=== PATIENT | male | born 1990 | race African-American/Black ===

== ENCOUNTER 2020-08-01 14:28 | Emergency (ER) | payer OTHER ==
[~2020-08-01] VITALS: Ht 177.8 cm; Wt 100.0 kg
[2020-08-01] MEDS ORDERED: ONDANSETRON PF 4 MG/2 ML VIAL. IVP ONE (14:45)
[2020-08-01] MEDS ORDERED: IV NORMAL SALINE 1,000ML 1,000 ML IV ONE ×2 (14:45→15:45)
[2020-08-01 15:12] LABS: BASO % 1 % (0-3); EOS # 0.1 x10^3/uL (0.0-0.7); EOS % 3 % (0-3); HEMATOCRIT 44.3 % (39.0-53.0); HEMOGLOBIN 14.1 g/dL (13.0-17.5); LYMPH # 1.1 x10^3/uL (1.0-4.8); LYMPH % 28 % (24-48); MEAN CORPUSCULAR HEMOGLOBIN 28 pg (25-35); MEAN CORPUSCULAR HGB CONC 32 g/dL (31-37); MEAN CORPUSCULAR VOLUME 89 fL (79-100); MONO # 0.5 x10^3/uL (0.0-1.1); MONO % 12 % (0-9); NEUT # 2.1 x10^3uL (1.8-7.7); NEUT % 56 % (31-73); PLATELET COUNT 215 x10^3/uL (140-400); RED BLOOD COUNT 5.01 x10^6/uL (4.30-5.70); RED CELL DISTRIBUTION WIDTH 14.7 % (11.5-14.5); WHITE BLOOD COUNT 3.8 x10^3/uL (4.0-11.0)
--- NOTE | 2020-08-01 15:14 | RAD ---
CT HEAD AND C-SPINE WO Date: 08/01/2020 2:43 PM Clinical Indication: seizure, confusion / Spl. Instructions: / History: Comparison: None. Technique: 5 mm axial tomographic images were obtained of the head without contrast. These were view ed on brain and bone windows. CT imaging of the cervical spine was performed without contrast. Coron al and sagittal reformatted images were performed. One or more of the following dose reduction techni ques were utilized: Automated exposure control (AEC), Adjustment of mA and/or kV according to patient size, Use of iterative reconstruction technique such as ASiR, CT scan done according to ALARA and im age gently/image wisely HEAD FINDINGS: The brain parenchyma is normal in attenuation. No intra- or extra-axial mass or fluid collection. No acute hemorrhage. The ventricles are normal in size, shape, and morphology. The summers-white matter simon ction is normal. The basilar cisterns are patent. The visualized paranasal sinuses are normal. The visualized portions of the orbits and globes are no rmal. The mastoid air cells are clear. No aggressive osseous lesion or fracture. CERVICAL SPINE FINDINGS: The cervical spine is normally aligned. No acute fracture. No aggressive lytic or blastic osseous les ion. The intervertebral disc heights are maintained. No high-grade spinal canal stenosis or neural foramin al narrowing. The thyroid gland is normal. No cervical lymphadenopathy. The visualized aerodigestive tract is unrem arkable. The visualized lung apices are clear. IMPRESSION: 1. No acute intracranial process. 2. No acute osseous abnormality of the cervical spine. Electronically signed by: Farhad Mccord MD (08/01/2020 3:11 PM) [facility]
[2020-08-01 15:17] LABS: CALCIUM 8.5 mg/dL (8.5-10.1); CREATININE 1.2 mg/dL (0.7-1.3); GFR 72.1; POTASSIUM 4.2 mmol/L (3.5-5.1)
[2020-08-01 15:30] LABS: ALBUMIN 3.7 g/dL (3.4-5.0); MAGNESIUM 1.8 mg/dL (1.8-2.4); TOTAL BILIRUBIN 0.3 mg/dL (0.2-1.0); TOTAL PROTEIN 7.4 g/dL (6.4-8.2)
--- NOTE | 2020-08-01 15:44 | PHYS DOC ---
Past History Past Medical History: Diabetes Past Surgical History: No Surgical History Smoking: Non-smoker Alcohol Use: None Drug Use: None General Adult EDM: Chief Complaint: SEIZURE HPI: HPI: Patient is a 30 year old male with Type 1 Diabetes who presents via EMS after a reported seizure. Pt states he remembers laying down in bed at his [facility] house and then waking up at the hospital. EMS states he was found down on the side of a hill, BG was 300. Pt says he did not take his insulin this morning because he has not eaten anything today. He has vomit present on his shirt but is currently resting comfortably in bed. He reports diffuse body soreness but no headache, chest pain, or SOB. His only localized pain is in his left elbow. He has no history of siezures, denies any recent trauma, alcohol, or drug use. He does not have any other complaints at this time. Review of Systems: Review of Systems: Constitutional: Denies fever or chills Eyes: Denies redness or eye pain HENT: Denies nasal congestion or sore throat Respiratory: Denies cough or shortness of breath Cardiovascular: Denies chest pain or palpitations GI: Denies abdominal pain, nausea. Vomit present on shirt : Denies dysuria or hematuria Musculoskeletal: Denies back pain or joint pain, reports diffuse muscle soreness /aches. Reports L elbow pain. Integument: Denies rash or skin lesions Neurologic: Denies headache, focal weakness or sensory changes Complete systems were reviewed and found to be within normal limits, except as documented in this note. Current Medications: Current Meds: Current Medications Medications (Trade) Dose Ordered Sig/Maria Elena Start Time Stop Time Status Last Admin Dose Admin Ondansetron HCl (Zofran) 4 mg 1X ONCE 08/01/20 14:45 08/01/20 14:54 DC 08/01/20 15:01 4 MG Sodium Chloride 1,000 ml @ 1,000 mls/hr 1X ONCE 08/01/20 14:45 08/01/20 15:44 08/01/20 15:01 1,000 MLS/HR Allergies: Allergies: Allergies Coded Allergies Type Severity Reaction Last Updated Verified No Known Drug Allergies 08/01/20 No Physical Exam: PE: Constitutional: Well developed, well nourished, no acute distress, non-toxic appearance HENT: Normocephalic, atraumatic Eyes: PERRL, EOMI, conjunctiva normal, no discharge Neck: Normal range of motion, no tenderness, supple Lungs & Thorax: No respiratory distress, equal chest rise and fall Abdomen: Soft, no tenderness Skin: Warm, dry, no erythema, no rash Back: No midline tenderness, no CVA tenderness Extremities: No tenderness, ROM intact, no edema. Reports L elbow pain Neurologic: Alert and oriented X 3, normal motor function, normal sensory function, no focal deficits noted Psychologic: Affect normal, judgment normal, lethargic/fatigued Current Patient Data: Labs: Laboratory Tests Test 08/01/20 14:44 08/01/20 14:47 Glucose (Fingerstick) 278 mg/dL (70-99) H Sodium Level 135 mmol/L (136-145) L Potassium Level 4.2 mmol/L (3.5-5.1) Chloride Level 99 mmol/L (98-107) Carbon Dioxide Level 26 mmol/L (21-32) Anion Gap 10 (6-14) Blood Urea Nitrogen 21 mg/dL (8-26) Creatinine 1.2 mg/dL (0.7-1.3) Estimated GFR (Cockcroft-Gault) 72.1 BUN/Creatinine Ratio 18 (6-20) Glucose Level 298 mg/dL (70-99) H Lactic Acid Level 2.3 mmol/L (0.4-2.0) H Calcium Level 8.5 mg/dL (8.5-10.1) Magnesium Level 1.8 mg/dL (1.8-2.4) Total Bilirubin 0.3 mg/dL (0.2-1.0) Aspartate Amino Transferase (AST) 24 U/L (15-37) Alanine Aminotransferase (ALT) 49 U/L (16-63) Alkaline Phosphatase 110 U/L (46-116) Creatine Kinase 184 U/L (39-308) Total Protein 7.4 g/dL (6.4-8.2) Albumin 3.7 g/dL (3.4-5.0) Albumin/Globulin Ratio 1.0 (1.0-1.7) Ethyl Alcohol Level < 10 mg/dL (0-10) Vital Signs: Vital Signs Date Time Temp Pulse Resp B/P (MAP) Pulse Ox O2 Delivery O2 Flow Rate FiO2 08/01/20 14:40 97.6 84 16 141/74 (96) 96 Room Air EKG: EKG: [] Radiology/Procedures: Radiology/Procedures: PROCEDURE: CT HEAD AND CERVICAL SPINE WO CT HEAD AND C-SPINE WO Date: 08/01/2020 2:43 PM Clinical Indication: seizure, confusion / Spl. Instructions: / History: Comparison: None. Technique: 5 mm axial tomographic images were obtained of the head without contrast. These were viewed on brain and bone windows. CT imaging of the cervical spine was performed without contrast. Coronal and sagittal reformatted images were performed. One or more of the following dose reduction techniques were utilized: Automated exposure control (AEC), Adjustment of mA and/or kV according to patient size, Use of iterative reconstruction technique such as ASiR, CT scan done according to ALARA and image gently/image wisely HEAD FINDINGS: The brain parenchyma is normal in attenuation. No intra- or extra-axial mass or fluid collection. No acute hemorrhage. The ventricles are normal in size, shape, and morphology. The summers-white matter junction is normal. The basilar cisterns are patent. The visualized paranasal sinuses are normal. The visualized portions of the orbits and globes are normal. The mastoid air cells are clear. No aggressive osseous lesion or fracture. CERVICAL SPINE FINDINGS: The cervical spine is normally aligned. No acute fracture. No aggressive lytic or blastic osseous lesion. The intervertebral disc heights are maintained. No high-grade spinal canal stenosis or neural foraminal narrowing. The thyroid gland is normal. No cervical lymphadenopathy. The visualized aerodigestive tract is unremarkable. The visualized lung apices are clear. IMPRESSION: 1. No acute intracranial process. 2. No acute osseous abnormality of the cervical spine. Electronically signed by: Farhad Mccord MD (08/01/2020 3:11 PM) [facility] PROCEDURE: ELBOW LEFT 3V XR ELBOW COMPLETE_LEFT 3+VIEWS 08/01/2020 3:40 PM INDICATION: Pain COMPARISON: None available. TECHNIQUE: 3 views of the left elbow are provided. FINDINGS/ IMPRESSION: No definite elbow joint effusion. There is no acute fracture or dislocation. Joint spaces are maintained. Bone mineralization is within normal limits. Regional soft tissues are within normal limits. There is no soft tissue gas or osseous erosion. No radiopaque foreign body. Electronically signed by: Marion Durbin MD (08/01/2020 3:50 PM) [facility] Course & Med Decision Making: Course & Med Decision Making Pertinent Labs and Imaging studies reviewed. (See chart for details) Aydin Aguilera is a 30 yo male who presents today via EMS for suspected seizure. His labs showed an increased lactic acid (2.3), BG of 278-298. Imaging showed no acute intracranial process, no c spine abnormality, and no fracture in the left elbow. Pt was treated with fluids and zofran, and instructed to follow up with an outpatient neurologist. Return precautions were discussed and all questions were answered. Patient stable for discharge with outpatient follow-up with PCP. Discussed findings and plan with patient, who acknowledges understanding and agreement. Dragon Disclaimer: Edith Disclaimer: This electronic medical record was generated, in whole or in part, using a voice recognition dictation system. Departure Departure: Impression: Primary Impression: Seizure-like activity Additional Impression: Nausea & vomiting Qualified Codes: R11.2 - Nausea with vomiting, unspecified Disposition: 01 DC HOME SELF CARE/HOMELESS Condition: STABLE Referrals: PCP,UNKNOWN (PCP) MARINO VELEZ MD Patient Instructions: Nausea and Vomiting, [id number], Seizure, Adult, [id number] Additional Instructions: Increase fluid hydration. In order to operate a motor vehicle you must be seizure-free for 6 months or cleared by a neurologist. Scripts Ondansetron (ONDANSETRON ODT) 4 Mg Tab.rapdis 1 TAB PO PRN Q6-8HRS PRN for NAUSEA, #16 TAB Prov: KARMEN LANDEROS DO 08/01/20 KARMEN LANDEROS DO Aug 01, 2020 15:44
--- NOTE | 2020-08-01 15:53 | RAD ---
XR ELBOW COMPLETE_LEFT 3+VIEWS 08/01/2020 3:40 PM INDICATION: Pain COMPARISON: None available. TECHNIQUE: 3 views of the left elbow are provided. FINDINGS/ IMPRESSION: No definite elbow joint effusion. There is no acute fracture or dislocation. Joint spaces are maintai juan carlos. Bone mineralization is within normal limits. Regional soft tissues are within normal limits. The re is no soft tissue gas or osseous erosion. No radiopaque foreign body. Electronically signed by: Marion Durbin MD (08/01/2020 3:50 PM) [facility]
[2020-08-01 15:59] LABS: AMPHETAMINE/METHAMPHETAMINE NEG (NEG); BARBITURATES NEG (NEG); BENZODIAZEPINES NEG (NEG); CANNABINOIDS NEG (NEG); COCAINE NEG (NEG); METHADONE NEG (NEG); OPIATES NEG (NEG); PHENCYCLIDINE NEG (NEG)
[2020-08-01 16:04] VITALS: BP 124/72
[2020-08-01 16:18] LABS: BILIRUBIN,URINE NEG (NEG); CLARITY,URINE CLEAR; COLOR,URINE YELLOW; GLUCOSE,URINE >=1000 mg/dL (NEG)
[2020-08-01 16:19] LABS: BACTERIA,URINE 0 /HPF (0-FEW); NITRITE,URINE NEG (NEG); RBC,URINE 0 /HPF (0-2); SQUAMOUS EPITHELIAL CELL,UR OCC /LPF; UROBILINOGEN,URINE 0.2 mg/dL (0.2 mg/dL); WBC,URINE OCC /HPF (0-4)
[2020-08-01] MEDS ORDERED: ONDA4TAB12 PO (16:39)
== END 2020-08-01 16:53 | disposition home or self-care (01) ==
LOC: ER 14:28
DX: R56.9 Unspecified convulsions (principal); R11.12 Projectile vomiting; M25.522 Pain in left elbow; E10.8 Type 1 diabetes mellitus with unspecified complications
CPT/HCPCS: 36415; 70450; 72125; 73080; 80053; 80307; 81001; 82010; 82550; 82947; 83605; 83735; 85025; 96361; 96374; 99285; G0480; J2405; J7030

== ENCOUNTER 2020-12-25 06:13 | Emergency (ER) | payer OTHER ==
[~2020-12-25] VITALS: Ht 177.8 cm; Wt 100.0 kg
[~2020-12-25 06:13] MED LIST: ONDA4TAB12 PO
[2020-12-25 07:41] LABS: BASO # 0.1 x10^3/uL (0.0-0.2); BASO % 1 % (0-3); EOS # 0.7 x10^3/uL (0.0-0.7); EOS % 13 % (0-3); HEMOGLOBIN 14.2 g/dL (13.0-17.5); LYMPH # 2.4 x10^3/uL (1.0-4.8); LYMPH % 44 % (24-48); MEAN CORPUSCULAR HEMOGLOBIN 29 pg (25-35); MEAN CORPUSCULAR HGB CONC 33 g/dL (31-37); MEAN CORPUSCULAR VOLUME 89 fL (79-100); MONO # 0.5 x10^3/uL (0.0-1.1); MONO % 9 % (0-9); NEUT # 1.8 x10^3uL (1.8-7.7); NEUT % 32 % (31-73); PLATELET COUNT 241 x10^3/uL (140-400); RED BLOOD COUNT 4.84 x10^6/uL (4.30-5.70); RED CELL DISTRIBUTION WIDTH 14.6 % (11.5-14.5); WHITE BLOOD COUNT 5.5 x10^3/uL (4.0-11.0)
--- NOTE | 2020-12-25 07:56 | PHYS DOC ---
Past History Past Medical History: Diabetes, Other Additional Past Medical Histor: type 1 Past Surgical History: No Surgical History Smoking: Non-smoker Alcohol Use: None Drug Use: None Social History Narrative: k2 Adult General Chief Complaint Chief Complaint: SYNCOPE HPI HPI Patient is a 30-year-old male with past medical history of type 1 diabetes who presents to the emergency room after having a syncopal episode. Patient states that his glucose was elevated this morning when he woke up in the 400s. He gave himself 20 units of insulin and then went into the bathroom. He states the next thing he knew he woke up with people surrounding him. He states he feels back to normal now. Glucose was in the 200s when EMS picked him up. He states his glucoses have been all over the place recently. He did have a seizure in July but has not had any seizures since then. He has not followed up with a neurologist since that time. No one witnessed a syncopal event today. He denies any headache, dizziness, chest pain, shortness of breath, abdominal pain, nausea, vomiting. Review of Systems Review of Systems Complete ROS is negative unless otherwise documented in [facility] Allergies Allergies Allergies Coded Allergies Type Severity Reaction Last Updated Verified No Known Drug Allergies 08/01/20 No Physical Exam Physical Exam General: Awake, alert, NAD. Well Nourished, well hydrated. Cooperative HEENT: Atraumatic, EOMI, PERRL, airway patent, moist oral mucosa Neck: Supple, trachea midline Respiratory: CTA bilaterally, normal effort, no wheezing/crackles CV: RRR, no murmur, cap refill <2 GI: Soft, nondistended, nontender, no masses MSK: No obvious deformities Skin: Warm, dry, intact Neuro: A&O x3, speech NL, 5/5 strength in BUE/BLE distally and proximally, CN 2- 12 intact, cerebellar testing normal Psych: Normal affect, normal mood, not suicidal or homicidal Current Patient Data Vital Signs Vital Signs Date Time Temp Pulse Resp B/P (MAP) Pulse Ox O2 Delivery O2 Flow Rate FiO2 12/25/20 06:13 97.7 54 18 144/89 (107) 100 Room Air Lab Results Laboratory Tests Test 12/25/20 06:28 Glucose (Fingerstick) 171 mg/dL (70-99) H EKG EKG Normal sinus rhythm, heart rate 60, normal QT, normal CT Radiology/Procedures Radiology/Procedures [] Heart Score C/O Chest Pain: N/A Risk Factors: Risk Factors: DM, Current or recent (<one month) smoker, HTN, HLP, family history of CAD, obesity. Risk Scores: Risk Factors: DM, Current or recent (<one month) smoker, HTN, HLP, family history of CAD, obesity. Course & Med Decision Making Course & Med Decision Making Pertinent Labs and Imaging studies reviewed. (See chart for details) Patient is a 30-year-old male who presents to the emergency room after having a possible syncopal episode. It is possible this could have been a seizure as it was not witnessed. Patient is very well-appearing at this time. He does not have any complaints and is ambulatory. He does not have any confusion and does not appear to have any post ictal state. He denies any kind of chest pain, headache, shortness of breath that would suggest emergent causes of syncope. It is possible that this was a vasovagal episode. Given patient's history of diabetes will do a work-up including CBC, CMP, UA, EKG. EKG shows normal sinus rhythm. Lab work is unremarkable. Patient refused to give urine. At this time he does not appear to be in DKA. Patient's test results and vitals while in the ED were fully reviewed and discussed with the patient. Patient is stable and at this time does not need admission to the hospital. We have discussed strict return precautions and the importance of following up with their Primary Care Physician. Patient stated understanding and was given an opportunity to ask any questions. Patient is in agreement with plan. Edith Disclaimer Dragon Disclaimer This electronic medical record was generated, in whole or in part, using a voice recognition dictation system. Departure Departure: Impression: Primary Impression: Syncope Disposition: HOME / SELF CARE / HOMELESS Condition: STABLE Referrals: PCP,UNKNOWN (PCP) Patient Instructions: Syncope FATOUMATA PAGE MD Dec 25, 2020 07:56
[2020-12-25 07:58] LABS: ALBUMIN 3.8 g/dL (3.4-5.0); ALBUMIN/GLOBULIN RATIO 1.1 (1.0-1.7); CALCIUM 8.9 mg/dL (8.5-10.1); CREATININE 0.8 mg/dL (0.7-1.3); GFR 139.3; POTASSIUM 3.7 mmol/L (3.5-5.1); TOTAL BILIRUBIN 0.2 mg/dL (0.2-1.0); TOTAL PROTEIN 7.2 g/dL (6.4-8.2)
[2020-12-25 08:30] VITALS: BP 131/79
[2020-12-25 09:17] LABS: BILIRUBIN,URINE NEG (NEG); CLARITY,URINE CLEAR; COLOR,URINE YELLOW; GLUCOSE,URINE NEG (NEG); NITRITE,URINE NEG (NEG); UROBILINOGEN,URINE 0.2 mg/dL (0.2 mg/dL)
[2020-12-25 09:18] LABS: BACTERIA,URINE 0 /HPF (0-FEW); RBC,URINE 0 /HPF (0-2); WBC,URINE 0 /HPF (0-4)
--- NOTE | 2020-12-25 21:34 | EKG ---
[address] [address] Test Date: 2020-12-25 Test Time: 06:37:46 Pat Name: ANNAMARIE VARGAS Department: Room: Gender: M Software Applications Designer: : 1990 Requested By: FATOUMATA PAGE Order Number: [id number] Reading MD: Measurements Intervals [place] Rate: 60 P: 56 [place]: 140 QRS: 58 QRSD: 92 T: 24 QT: 370 QTc: 370 Interpretive Statements SINUS RHYTHM OTHERWISE NORMAL ECG RI6.02 No previous ECG available for comparison
== END 2020-12-25 08:45 | disposition home or self-care (01) ==
LOC: ER 06:13
DX: R55 Syncope and collapse (principal); E10.8 Type 1 diabetes mellitus with unspecified complications
CPT/HCPCS: 36415; 80053; 81001; 82947; 85025; 93005; 99284; G0480